=== PATIENT | female | born 1960 | race Caucasian/White ===

== ENCOUNTER → 2016-11-18 | Outpatient (CLI) | payer OTHER ==
[~2016-11-18] MED LIST: DOXY100T PO
[2016-11-18 15:24] LABS: CHOLESTEROL/HDL RATIO 2.2; THYROID STIMULATING HORMONE 1.51 uIu/ml (0.300-4.500)
== END | disposition home or self-care (01) ==
LOC: C.LAB 13:02
PROVIDERS: ATTEND Nurse Practitioner Family
DX: L60.3 Nail dystrophy (principal); F32.9 Major depressive disorder, single episode, unspecified; R53.81 Other malaise; D51.8 Other vitamin B12 deficiency anemias; Z13.220 Encounter for screening for lipoid disorders; Z13.1 Encounter for screening for diabetes mellitus

== ENCOUNTER → 2017-03-12 | Outpatient (CLI) | payer OTHER ==
[~2017-03-12] MED LIST changes: +MULT-1092 PO
== END | disposition home or self-care (01) ==
LOC: C.LAB 12:30
PROVIDERS: ATTEND Dermatology
DX: R23.9 Unspecified skin changes (principal); L65.9 Nonscarring hair loss, unspecified

== ENCOUNTER → 2017-05-20 | Outpatient (CLI) | payer OTHER ==
[~2017-05-20] MED LIST changes: -MULT-1092 PO
== END | disposition home or self-care (01) ==
LOC: C.LAB 17:15
PROVIDERS: ATTEND Dermatology
DX: I73.00 Raynaud's syndrome without gangrene (principal); L65.9 Nonscarring hair loss, unspecified

== ENCOUNTER → 2017-05-31 | Outpatient (CLI) | payer OTHER ==
--- NOTE | 2017-05-31 18:13 | DIAGNOSTIC IMAGING REPORT ---
CHEST 2 VIEWS ROUTINE CLINICAL HISTORY: BREAST LUMP, STERNAL PAIN pain COMPARISON STUDY: No previous studies for comparison. FINDINGS: The bones soft tissues and hemidiaphragms are normal. The cardiomediastinal silhouette is normal. The lungs are clear. The pulmonary vasculature is normal. IMPRESSION: Negative chest. The above report was generated using voice recognition software. It may contain grammatical, syntax or spelling errors. Electronically signed by: Jose Zhou M.D. 05/31/2017 6:12 PM Dictated Date/Time: 05/31/2017 6:11 PM
== END | disposition home or self-care (01) ==
LOC: C.RAD 17:41
PROVIDERS: ATTEND Nurse Practitioner Family
DX: R07.89 Other chest pain (principal); N63 Unspecified lump in breast

== ENCOUNTER → 2017-06-10 | Outpatient (CLI) | payer OTHER ==
--- NOTE | 2017-06-10 13:31 | MAMMOGRAPHY REPORT ---
BILATERAL DIGITAL DIAGNOSTIC MAMMOGRAM TOMOSYNTHESIS WITH CAD AND TARGETED RIGHT ULTRASOUND: 7 CLINICAL HISTORY: 56-year-old woman presents with a painful red draining mass in the lower inner quad rant of the right breast that she has noticed for 1 to 2 weeks. She was recently placed on doxycycli ne by her primary care physician. TECHNIQUE: Bilateral CC and MLO views of the breasts with and without implant displacement views wer e obtained. Tomosynthesis was also performed on the implant displaced views. Current study was also evaluated with a Computer Aided Detection (CAD) system. COMPARISON: No prior exams were available for comparison. BREAST COMPOSITION: There are scattered areas of fibroglandular density in both breasts. FINDINGS: Bilateral subglandular silicone implants are in place. A triangle palpable marker overlie s the lower inner far posterior right breast, denoting the area of concern pointed out by the patient . There are a few benign appearing rim calcifications scattered in the breasts. No suspicious mass, architectural distortion or cluster of suspicious microcalcification. Targeted ultrasound was performed in the area of concern, in the 3:00 far medial right breast, 7 cm f rom the nipple. On visual inspection, there is a 3.5 x 4 cm erythematous mass, with evidence of skin blistering near the edges of the mass. On ultrasound, there is diffuse skin thickening over the daniella thematous mass and a small central focal fluid collection measuring 5.1 x 7.2 mm. This is most pati tible with an abscess, and could be secondary to an infected epidermal inclusion cyst. Surgical cons ultation is recommended. IMPRESSION: ACR BI-RADS CATEGORY 2: BENIGN, TARGETED ULTRASOUND ACR BI-RADS CATEGORY 2: BENIGN 1. The painful palpable right lump in the medial right breast is compatible with a small abscess dustin suring 5 x 7 mm, but there is diffuse surrounding skin thickening and erythema measuring 3.5 x 4 cm. Surgical consultation for evaluation and possible incision and drainage is recommended. The patient should continue her antibiotics until at least meeting with the surgeon. An appointment was sherry candelaria with Dr. Martinez of general surgery today, but this was not convenient for the patient and she nick l instead follow-up in his office on Friday, June 16. 2. Otherwise no mammographic evidence of malignancy in the breasts. Recommend bilateral mammography in one year. Approximately 10% of breast cancers are not detected with mammography. A negative mammographic report should not delay biopsy if a clinically suggestive mass is present. Emerald Harris M.D. ay/:06/10/2017 12:06:44 Allergist/Immunologist Physician: Esperanza HERR(R)(M), [facility] letter sent: Normal 1/2 BI-RADS Code: ACR BI-RADS Category 2: Benign Ultrasound BI-RADS: ACR BI-RADS Category 2: Benign
== END | disposition home or self-care (01) ==
LOC: C.MAMM 09:12
PROVIDERS: ATTEND Nurse Practitioner Family
DX: N63 Unspecified lump in breast (principal)

== ENCOUNTER → 2017-08-19 | Outpatient (CLI) | payer OTHER | END | disposition home or self-care (01) | LOC: C.PATHSPEC 10:48 | PROVIDERS: ATTEND Surgery | DX: L90.5 Scar conditions and fibrosis of skin (principal); N60.01 Solitary cyst of right breast ==

== ENCOUNTER → 2017-10-04 | Outpatient (CLI) | payer OTHER ==
[2017-10-04 08:09] LABS: HEMATOCRIT 37.9 % (37-47); MEAN CELL VOLUME 93.6 fL (80-100); MEAN CORPUSCULAR HEMOGLOBIN 31.9 pg (25-34); MEAN PLATELET VOLUME 9.9 fL (7.4-10.4); PLATELET COUNT 280 K/uL (130-400); RED BLOOD COUNT 4.05 M/uL (4.2-5.4); WHITE BLOOD COUNT 8.22 K/uL (4.8-10.8)
[2017-10-04 08:38] LABS: BLOOD UREA NITROGEN 16 mg/dl (7-18); BUN/CREATININE RATIO 21.9 (10-20); CARBON DIOXIDE 26 mmol/L (21-32); CHLORIDE 107 mmol/L (98-107); CHOLESTEROL 105 mg/dl (0-200); CREATININE 0.74 mg/dl (0.60-1.20); GLUCOSE 88 mg/dl (70-99); MAGNESIUM 2.1 mg/dl (1.8-2.4); POTASSIUM 3.8 mmol/L (3.5-5.1); SODIUM 140 mmol/L (136-145); TRIGLYCERIDES 42 mg/dl (0-150); VERY LOW DENSITY LIPOPROT CALC 8 mg/dl
[2017-10-04 08:49] LABS: CHOLESTEROL/HDL RATIO 1.7; HDL CHOLESTEROL 63 mg/dl; LDL CHOLESTEROL CALCULATED 34 mg/dl; TOTAL IRON BINDING CAPACITY 310 mcg/dl (250-450)
== END | disposition home or self-care (01) ==
LOC: C.LAB 07:03
PROVIDERS: ATTEND Nurse Practitioner Family
DX: Z13.1 Encounter for screening for diabetes mellitus (principal)

== ENCOUNTER → 2017-10-22 | Outpatient (CLI) | payer OTHER ==
[~2017-10-22] MED LIST changes: +CEPH500C PO; +MULT-1092 PO
== END | disposition home or self-care (01) ==
LOC: C.LABSPEC 17:16
PROVIDERS: ATTEND Obstetrics & Gynecology
DX: N76.0 Acute vaginitis (principal)

== ENCOUNTER → 2017-10-22 | Outpatient (CLI) | payer OTHER | END | disposition home or self-care (01) | LOC: C.PAPS 16:05 | PROVIDERS: ATTEND Obstetrics & Gynecology | DX: Z12.4 Encounter for screening for malignant neoplasm of cervix (principal) ==

== ENCOUNTER 2017-10-23 14:34 | Emergency (ER) | payer OTHER ==
[~2017-10-23] VITALS: Ht 175.3 cm; Wt 70.9 kg
[~2017-10-23 14:34] MED LIST changes: -CEPH500C PO; -MULT-1092 PO
[2017-10-23 14:38] VITALS: TEMP 36.6; Ht 175.3 cm; Wt 70.9 kg
[2017-10-23] MEDS ORDERED: LIDOCAINE/EPINEPHRINE 1% 20 ML VIAL INFIL STA (15:03)
[2017-10-23] MEDS ORDERED: MULT-1092 PO (15:06)
--- NOTE | 2017-10-23 15:58 | DIAGNOSTIC IMAGING REPORT ---
R FOOT MIN 3 VIEWS ROUTINE HISTORY: 57 years-old Female R heel Foreign body.trauma acute right heel pain with concern for possible foreign body COMPARISON: None available TECHNIQUE: 3 views of the right foot FINDINGS: There is a 1.5 x 0.1 cm mildly radiopaque structure present within the plantar soft tissues adjacent to the posterior calcaneus laterally. Mild associated soft tissue swelling. There is no acute fracture or dislocation. Probable bone island of the distal metaphyseal fifth metatarsal. Degenerative changes involve the hallux sesamoids with the adjacent first metatarsal head. Accessory navicular. IMPRESSION: 1. No acute fracture or dislocation. 2. 1.5 x 0.1 cm linear foreign body involves the plantar soft tissues adjacent to the posterior calcaneus. The above report was generated using voice recognition software. It may contain grammatical, syntax or spelling errors. Electronically signed by: Erwin Bassett M.D. 10/23/2017 3:56 PM Dictated Date/Time: 10/23/2017 3:54 PM
[2017-10-23] MEDS ORDERED: CEPHALEXIN MONOHYDRATE 250 MG CAP PO STA (17:11)
[2017-10-23] MEDS ORDERED: CEPH500C PO (17:16)
--- NOTE | 2017-10-23 17:16 | EMERGENCY ROOM VISIT NOTE ---
ED Visit Note First contact with patient: 14:46 Chief Complaint: "Laceration bottom right foot". History of Present Illness: This patient is a 57 who presents to the Emergency Department female for evaluation of their R heel laceration. Patient sustained the laceration while walking last night in her house around 10 pm. They report a moderate amount of bleeding initially. They deny any numbness or tingling into the distal extremity. Patient rates her current discomfort as a 0/10. Patient's Tetanus status is currently up-to-date. Medications: As noted below Allergies: Bactrim PMH: No pertinent SHx: Patient lives locally ROS: All pertinent positive and negative review of systems are appropriately documented in the History of Present Illness. Physical Exam: VITAL SIGNS - Vital signs and nursing notes were reviewed. Stable. GENERAL -57-year-old female appearing her stated age who is in no acute distress. Communicates well with provider and answers questions appropriately. SKIN - There is a 2 cm long laceration noted on the bottom of the right heel anterior posterior superficial with a deep Center. The edges gape apart with traction. No foreign bodies appreciated but are suspected. Upon further examination there are no deep structures including vessel, tendon, or bony structures appreciated. There is no active bleeding noted. MUSCULOSKELETAL - FROM NEUROLOGIC - Spinothalamic tract was found to be intact with ability to discriminate sharp versus dull sensation. VASCULAR - Capillary refill was brisk. ED Course: Patient was seen and evaluated by myself. Risks and benefits of performing primary wound closure versus no repair were discussed with the patient who verbalizes understanding. Verbal consent was obtained prior to performing the procedure. 3 cc of 1% buffered lidocaine with epinephrine was used to anesthetize the right heel laceration. X-ray was obtained with results as above. There is a suspected foreign body on the x-ray. The wound was cleansed and prepped in the typical sterile fashion utilizing normal saline and Betadine. The wound was sterilely draped. Once proper anesthetization was established, the wound was further examined and demonstrated potential foreign body however I do not feel comfortable from the emergency department setting removing this without orthopedic evaluation. Case was discussed with the attending physician and I spoke with Dr. Egan of orthopedics. Then Dr. Joe and Jake Rosas PA-C came to hydrate the patient. Please refer to their documentation regarding the procedure. It was removed successfully. Patient is to follow with them on Friday. Keflex was prescribed help prevent infection. Patient appears stable for outpatient management. She was given a postop shoe and crutches. She was educated upon management, educated upon worrisome symptoms in which to return, had persistent by discharge, and was discharged home in good condition. The patient indicates that her tetanus was updated today at the family doctor's office who referred her here for evaluation of the suspected foreign body. Problem List Medical Problems: (1) Asthma Status: Chronic (2) IBS (irritable bowel syndrome) Status: Chronic (3) Left facial swelling Status: Resolved (4) Left facial swelling Status: Resolved Current/Historical Medications Scheduled Cephalexin Monohydrate (Keflex), 500 MG PO QID Multiple Vitamins W/ Minerals (Centrum Silver 50+Women), 1 TAB PO DAILY Allergies Coded Allergies: Sulfa Drugs (Verified Allergy, Unknown, ., 05/27/14) Sulfamethoxazole w/Trimethoprim (Verified Allergy, Unknown, ., 05/27/14) Vital Signs Date Time Temp Pulse Resp B/P (MAP) Pulse Ox O2 Delivery O2 Flow Rate FiO2 10/23/17 17:26 70 124/71 99 Room Air 10/23/17 14:38 36.6 67 18 157/84 100 Room Air Medications Administered Medications (Trade) Dose Ordered Sig/Kiran Route Start Time Stop Time Status Last Admin Dose Admin Cephalexin Monohydrate (Keflex Cap) 500 mg NOW STAT PO 10/23/17 17:11 10/23/17 17:12 DC 10/23/17 17:23 500 MG Departure Information Impression Primary Impression: Foreign body in foot, right Dispostion Home / Self-Care Condition GOOD Prescriptions Cephalexin Monohydrate (Keflex) 500 Mg Cap 500 MG PO QID for 7 Days, #28 CAP Prov: Luis Chapa PA-C 10/23/17 Referrals No Doctor, Assigned (PCP) Dennis Egan M.D. Patient Instructions My [facility] Additional Instructions You have been treated in the Emergency Department for a R heel foreign body. Keflex for infection prevention every 6 hours. For pain control, you can use the following cowd-rtt-wegezyj medicines (if >12 yo): - Regular strength (325mg/tab) Tylenol (acetaminophen) 2 tabs every 4-6 hours as needed. Do not exceed 12 tablets in a 24 hour period. Avoid taking more than 3 grams (3000 mg) of Tylenol per day. This includes any other sources of acetaminophen you may take on a regular basis. - Regular strength (200 mg/tab) Advil (ibuprofen) 1-2 tabs every 4-6 hours as needed. Do not exceed a dose of 3200 mg per day. If this is a recent injury (<24 hrs), ice can be applied to the area of pain for the first 3 days to help decrease pain and inflammation. You have been provided the number for an Orthopaedic Surgeon. You should expect a fall from them tomorrow regarding followup. Keep the foot splint on until seen Friday. Use the crutches you have been provided to keep ALL weight off of the foot until cleared. Return to the Emergency Department if your current symptoms worsen despite treatment course outlined above, or if you develop any of the following symptoms : intractable pain despite aforementioned treatment course or new onset of numbness or tingling of the foot.
[2017-10-23 17:26] VITALS: BP 124/71; PULSE 70; O2SAT 99
--- NOTE | 2017-10-23 17:37 | DIAGNOSTIC IMAGING REPORT ---
RIGHT FOOT 3 VIEWS CLINICAL HISTORY: Foreign body. FINDINGS: 3 views of the right foot are compared to study performed earlier the same day 10/23/2017. The skeletal structures are well mineralized. No fracture is seen. The joint spaces of the foot are well-maintained. A bone island is incidentally noted in the fifth metatarsal. The foreign body present within the soft tissues of the heel seen on the earlier examination is no longer identified. The overlying soft tissues are within normal limits. IMPRESSION: 1. No acute bony abnormality is seen in the right foot. 2. The foreign body in the heel seen on the earlier study has been removed. Electronically signed by: Dmitriy Coello M.D. 10/23/2017 5:36 PM Dictated Date/Time: 10/23/2017 5:24 PM
--- NOTE | 2017-10-23 17:45 | ORTHOPEDIC CONSULTATION REPORT ---
DATE OF CONSULTATION: 10/23/2017 CHIEF COMPLAINT: Right foot pain. HISTORY OF PRESENT ILLNESS: This is a 57-year-old white female who was seen in the ED today. The patient states she sustained a laceration on her right foot last evening. She was walking barefoot across the carpet. She had a sudden onset of pain and a sharp burning sensation in her foot. She noticed some bleeding on the bottom of her foot. It continued to be painful with any attempted weightbearing. She did see her PCP today and they updated her tetanus. She was then sent to the ED for evaluation of possible foreign body. No numbness or tingling. No other complaints. She has already received local anesthetic provided by the ED staff. She does recall breaking a mirror a few days ago, but thought she picked up all of the pieces. PAST MEDICAL HISTORY: Significant for skin sensitivity, asthma, bronchitis, history of pneumonia, and history of GERD. PREVIOUS SURGERIES: Foot surgery x3. FAMILY HISTORY: Significant for diabetes and kidney disease. Parents are living. SOCIAL HISTORY: The patient is employed. No tobacco use. No ETOH use. ALLERGIES: KNOWN ALLERGY TO BACTRIM, WHICH CAUSED A RASH 30 YEARS AGO. REVIEW OF SYSTEMS: Significant for above stated conditions. Otherwise unremarkable. PHYSICAL EXAMINATION: GENERAL: Well-developed and well-nourished middle aged white female in no acute distress. Lying on a bed. Alert and oriented. SKIN: Warm and dry with good turgor. On the plantar surface of her right heel, she has an approximately 2.5-cm laceration present. It is slightly irregular. Bleeding is controlled. She has a deeper portion of the wound that is more toward the heel. It is very superficial toward the toes. DATA: Radiographic imaging previously obtained in the ED showed a 15-mm foreign body present in the heel. Post-removal films showed no foreign body present. PROCEDURE: Her heel has already been prepped and draped by the ED staff. I did augment her anesthesia with another 10ml of 1% lidocaine. The patient was seen in conjunction with Dr. Garrett. He was able to probe the area and did palpate a firm object within the area and was able to remove it using hemostats. It appeared to be a shard of glass measuring about 15mm. This matches the length of the image seen on her films. The wound was irrigated copiously using normal sterile saline under jet spray lavage. The wound was then closed using 4-0 nylon in 2 simple interrupted sutures. This was closed loosely to allow for potential drainage. Skin was then cleansed and a bacitracin dressing was applied. PLAN: The patient will follow up in the office on Friday for a wound check. She was given crutches and a postop shoe for weightbearing. She will bear more weight on her forefoot as comfort dictates. Tylenol and Motrin every 6 hours as needed for discomfort. She was started on Keflex 500 mg q.i.d. x7 days. First dose was given in the ED. She may cleanse the area gently with soap and water. Avoid soaking. The patient was seen in conjunction with Dr. Egan, who also evaluated the patient and concurred with today's treatment and plan. ELGIN
--- NOTE | 2017-10-23 21:01 | ORTHOPEDIC CONSULTATION ---
DATE OF CONSULTATION: 10/23/2017 The patient was seen in conjunction with Dr. Jann Garrett and Jake Rosas. For further details refer to Jake's dictation. She had a foreign body in her left foot. This was removed. Radiographs confirmed such. The wound was irrigated. She had several stitches to loosely approximate the skin and antibiotics. This appeared to be a piece of glass that she picked up yesterday. She will follow up in our office in 4 days for wound check. She will be on antibiotics. She can weightbear as tolerated with postop shoe and crutches, ice, elevation and pain medication. The patient seen and examined. For further details, refer to Jake Rosas dictation. He and I saw and evaluated together and are in agreement with the plan.
== END 2017-10-23 17:40 | disposition home or self-care (01) ==
LOC: C.EDB 14:35 → C.EDD 17:40
DX: S91.321A Laceration with foreign body, right foot, initial encounter (principal); X58.XXXA Exposure to other specified factors, initial encounter; Y92.009 Unspecified place in unspecified non-institutional (private) residence as the place of occurrence of the external cause; J45.909 Unspecified asthma, uncomplicated; K58.9 Irritable bowel syndrome, unspecified; K21.9 Gastro-esophageal reflux disease without esophagitis; Z87.01 Personal history of pneumonia (recurrent); Z83.3 Family history of diabetes mellitus; Z84.1 Family history of disorders of kidney and ureter

== ENCOUNTER 2017-11-12 21:33 | Emergency (ER) | payer OTHER ==
[~2017-11-12] VITALS: Ht 175.3 cm; Wt 66.0 kg
[~2017-11-12 21:33] MED LIST changes: -DOXY100T PO; +MULT-1092 PO
[2017-11-12 21:44] VITALS: TEMP 36.4; Ht 175.3 cm; Wt 66.0 kg
[2017-11-12] MEDS ORDERED: AMPH20TA2 PO (22:34)
[2017-11-12 22:49] LABS: BASO % 0.2 %; BASO ABS # 0.04 K/uL (0-0.2); EOS % 0.6 %; EOS ABS # 0.11 K/uL (0-0.5); HEMATOCRIT 40.9 % (37-47); HEMOGLOBIN 13.9 g/dL (12.0-16.0); IG# 0.06 K/uL (0.00-0.02); LYMPH % 5.8 %; MEAN CELL VOLUME 94.5 fL (80-100); MEAN CORPUSCULAR HEMOGLOBIN 32.1 pg (25-34); MEAN PLATELET VOLUME 10.1 fL (7.4-10.4); MONO ABS # 0.68 K/uL (0.11-0.59); NEUT % 89.1 %; NEUT ABS # 15.28 K/uL (1.4-6.5); PLATELET COUNT 297 K/uL (130-400); RED CELL DISTRIBUTION WIDTH CV 12.8 % (11.5-14.5); RED CELL DISTRIBUTION WIDTH SD 44.4 fL (36.4-46.3); WHITE BLOOD COUNT 17.17 K/uL (4.8-10.8)
--- NOTE | 2017-11-12 22:54 | DIAGNOSTIC IMAGING REPORT ---
CT SCAN OF THE BRAIN WITHOUT IV CONTRAST CLINICAL HISTORY: Head injury. COMPARISON STUDY: MRI of the brain dated 05/27/2014. TECHNIQUE: Unenhanced axial CT scan of the brain is performed from the vertex to the skull base. A dose lowering technique was utilized adhering to the principles of ALARA. CT DOSE: 837.99 mGy.cm FINDINGS: Brain parenchyma: The brain parenchyma is normal in appearance. There is no hemorrhage, mass effect, or evidence of acute territorial ischemia by CT criteria. Slade-white matter is preserved. No extra-axial fluid collection is seen. Ventricles, sulci, cisterns: Normal in configuration. Intracranial vasculature: The visualized intracranial vasculature at the skull base is normal in appearance. Calvarium: The skeletal structures are well mineralized. No depressed calvarial fracture is seen. Sinuses and mastoids: Mild mucosal thickening is seen within the maxillary, sphenoid, and ethmoid sinuses. The mastoid air cells are well pneumatized. Orbits: The bony orbits are grossly intact. IMPRESSION: There is no hemorrhage, mass effect, or evidence of acute territorial ischemia by CT criteria. Electronically signed by: Dmitriy Coello M.D. 11/12/2017 10:52 PM Dictated Date/Time: 11/12/2017 10:50 PM
[2017-11-12 22:59] LABS: PTT PATIENT 24.3 SECONDS (21.0-31.0)
--- NOTE | 2017-11-12 23:06 | DIAGNOSTIC IMAGING REPORT ---
CT SCAN OF THE FACIAL BONES WITHOUT IV CONTRAST CLINICAL HISTORY: Left facial injury. COMPARISON STUDY: CT of the brain performed concurrently on 11/12/2017. TECHNIQUE: High-resolution CT scan of the facial bones is performed. Images are reviewed in the axial, sagittal, and coronal planes. IV contrast was not administered for this examination. A dose lowering technique was utilized adhering to the principles of ALARA. CT DOSE: Reported separately under the concurrently performed CT scan of the brain. FINDINGS: The skeletal structures are well mineralized. There is no evidence of facial bone fracture. The bony orbits are intact and the orbital contents are within normal limits. The zygomatic arches, nasal bones, and pterygoid plates are preserved. The maxilla and mandible are intact. There are no layering blood products within the paranasal sinuses. There is mild/moderate mucosal thickening within the maxillary and ethmoid sinuses. Mild mucosal thickening is also seen in the sphenoid sinuses. The mastoid air cells are well pneumatized. The visualized calvarium and upper cervical spine are maintained. Partially imaged brain parenchyma is within normal limits. There is mild left periorbital and premalar soft tissue contusion. IMPRESSION: There is no evidence of facial bone fracture. Electronically signed by: Dmitriy Coello M.D. 11/12/2017 11:05 PM Dictated Date/Time: 11/12/2017 11:02 PM
[2017-11-12 23:07] LABS: ALBUMIN 3.7 gm/dl (3.4-5.0); ALT/SGPT 20 U/L (12-78); AST/SGOT 13 U/L (15-37); BLOOD UREA NITROGEN 13 mg/dl (7-18); CALCIUM 9.2 mg/dl (8.5-10.1); CARBON DIOXIDE 28 mmol/L (21-32); CREATININE 0.88 mg/dl (0.60-1.20); GLUCOSE 100 mg/dl (70-99); POTASSIUM 3.7 mmol/L (3.5-5.1); SODIUM 138 mmol/L (136-145)
[2017-11-12 23:11] LABS: ALKALINE PHOSPHATASE 96 U/L (45-117); TOTAL PROTEIN 7.5 gm/dl (6.4-8.2)
[2017-11-12] MEDS ORDERED: ACETAMINOPHEN 500 MG TAB PO STA (23:40)
--- NOTE | 2017-11-13 00:12 | EMERGENCY ROOM VISIT NOTE ---
History First contact with patient: 21:48 Chief Complaint: FALL Stated Complaint: FALL, AMS, FACIAL INJURIES History of Present Illness The patient is a 57 year old female who presents to the Emergency Room with complaints of a fall. The patient believes that she slipped on ice and struck the left side of her face. She states that she feels very disoriented and does not remember what happened. She states that she remembers being with her grandson and then coming here, but does not member anything in between. She thinks that she must have slipped on ice, because this is what her grandson told her. She reports pain in the left side of her head radiating 5/10. She denies any numbness, weakness, blurred vision, slurred speech, nausea or vomiting. She denies feeling confused or having a headache prior to the head injury. Review of Systems A complete 10 point review of systems was reviewed with the patient with pertinent positives and negatives as per history of present illness. All else were negative. Past Medical/Surgical History Medical Problems: (1) Asthma (2) IBS (irritable bowel syndrome) (3) Left facial swelling (4) Left facial swelling Family History Diabetes mellitus Hypertension Social History Smoking Status: Former Smoker Alcohol Use: none Marital Status: single Housing Status: lives alone Occupation Status: employed Current/Historical Medications Scheduled Amphetamine-Dextroamphetamine 20MG (Adderall 20MG), 20 MG PO QAM Multiple Vitamins W/ Minerals (Centrum Silver 50+Women), 1 TAB PO DAILY Physical Exam Vital Signs Date Time Temp Pulse Resp B/P (MAP) Pulse Ox O2 Delivery O2 Flow Rate FiO2 11/13/17 00:40 76 130/69 97 11/13/17 00:00 74 131/63 99 Room Air 11/12/17 21:44 36.4 75 162/73 100 Room Air Physical Exam VITALS: Vitals are noted on the nurse's note and reviewed by myself. Vital signs stable. GENERAL: This is a 57-year-old female, in no acute distress, nondiaphoretic, well-developed well-nourished. SKIN: There is an abrasion lateral to the left eye as well as some ecchymosis in the left periorbital region. HEAD: Normocephalic atraumatic. EARS: External auditory canals clear, tympanic membranes pearly driscoll without erythema or effusion bilaterally. No hemotympanum. EYES: Left periorbital ecchymosis. Pupils equal round and reactive to light and accommodation. Extraocular movements intact. MOUTH: Mucous membranes moist. NECK: Supple without nuchal rigidity. Cervical spine is nontender. HEART: Regular rate and rhythm without murmurs gallops or rubs. LUNGS: Clear to auscultation bilaterally without wheezes, rales or rhonchi. MUSCULOSKELETAL: Strength 5/5 throughout. NEURO: Patient was alert and oriented to person place and time. She does seem to be confused this evening's events. Medical Decision & Procedures ER Provider Diagnostic Interpretation: CT SCAN OF THE BRAIN WITHOUT IV CONTRAST IMPRESSION: There is no hemorrhage, mass effect, or evidence of acute territorial ischemia by CT criteria. CT SCAN OF THE FACIAL BONES WITHOUT IV CONTRAST IMPRESSION: There is no evidence of facial bone fracture. Laboratory Results 11/12/17 22:19 Red Blood Count 4.33, Mean Corpuscular Volume 94.5, Mean Corpuscular Hemoglobin 32.1, Mean Corpuscular Hemoglobin Concent 34.0, Mean Platelet Volume 10.1, Neutrophils (%) (Auto) 89.1, Lymphocytes (%) (Auto) 5.8, Monocytes (%) (Auto) 4.0, Eosinophils (%) (Auto) 0.6, Basophils (%) (Auto) 0.2, Neutrophils # (Auto) 15.28, Lymphocytes # (Auto) 1.00, Monocytes # (Auto) 0.68, Eosinophils # (Auto) 0.11, Basophils # (Auto) 0.04 11/12/17 22:19 Test 11/12/17 22:19 11/12/17 23:20 White Blood Count 17.17 K/uL (4.8-10.8) Red Blood Count 4.33 M/uL (4.2-5.4) Hemoglobin 13.9 g/dL (12.0-16.0) Hematocrit 40.9 % (37-47) Mean Corpuscular Volume 94.5 fL (80-100) Mean Corpuscular Hemoglobin 32.1 pg (25-34) Mean Corpuscular Hemoglobin Concent 34.0 g/dl (32-36) Platelet Count 297 K/uL (130-400) Mean Platelet Volume 10.1 fL (7.4-10.4) Neutrophils (%) (Auto) 89.1 % Lymphocytes (%) (Auto) 5.8 % Monocytes (%) (Auto) 4.0 % Eosinophils (%) (Auto) 0.6 % Basophils (%) (Auto) 0.2 % Neutrophils # (Auto) 15.28 K/uL (1.4-6.5) Lymphocytes # (Auto) 1.00 K/uL (1.2-3.4) Monocytes # (Auto) 0.68 K/uL (0.11-0.59) Eosinophils # (Auto) 0.11 K/uL (0-0.5) Basophils # (Auto) 0.04 K/uL (0-0.2) RDW Standard Deviation 44.4 fL (36.4-46.3) RDW Coefficient of Variation 12.8 % (11.5-14.5) Immature Granulocyte % (Auto) 0.3 % Immature Granulocyte # (Auto) 0.06 K/uL (0.00-0.02) Prothrombin Time 10.4 SECONDS (9.0-12.0) Prothromb Time International Ratio 1.0 (0.9-1.1) Activated Partial Thromboplast Time 24.3 SECONDS (21.0-31.0) Partial Thromboplastin Ratio 0.9 Anion Gap 6.0 mmol/L (3-11) Est Creatinine Clear Calc Drug Dose 74.4 ml/min Estimated GFR () 85.1 Estimated GFR (Non- 73.4 BUN/Creatinine Ratio 14.7 (10-20) Calcium Level 9.2 mg/dl (8.5-10.1) Total Bilirubin 0.8 mg/dl (0.2-1) Aspartate Amino Transf (AST/SGOT) 13 U/L (15-37) Alanine Aminotransferase (ALT/SGPT) 20 U/L (12-78) Alkaline Phosphatase 96 U/L (45-117) Troponin I < 0.015 ng/ml (0-0.045) Total Protein 7.5 gm/dl (6.4-8.2) Albumin 3.7 gm/dl (3.4-5.0) Globulin 3.8 gm/dl (2.5-4.0) Albumin/Globulin Ratio 1.0 (0.9-2) Ethyl Alcohol mg/dL < 3.0 mg/dl (0-3) Urine Color YELLOW Urine Appearance CLEAR (CLEAR) Urine pH 7.5 (4.5-7.5) Urine Specific [place] 1.010 (1.000-1.030) Urine Protein NEG (NEG) Urine Glucose (UA) NEG (NEG) Urine Ketones NEG (NEG) Urine Occult Blood NEG (NEG) Urine Nitrite NEG (NEG) Urine Bilirubin NEG (NEG) Urine Urobilinogen NEG (NEG) Urine Leukocyte Esterase NEG (NEG) Urine Test NEG (NEG) Urine Opiates Screen NEG (NEG) Urine Methadone, Qualitative NEG (NEG) Urine Barbiturates NEG (NEG) Urine Phencyclidine (PCP) Level NEG (NEG) Ur Amphetamine/Methamphetamine NEG (NEG) MDMA (Ecstasy) Screen NEG (NEG) Urine Benzodiazepines Screen NEG (NEG) Urine Cocaine Metabolite NEG (NEG) Urine Marijuana (THC) NEG (NEG) Medications Administered Medications (Trade) Dose Ordered Sig/Kiran Route Start Time Stop Time Status Last Admin Dose Admin Acetaminophen (Tylenol Tab) 1,000 mg NOW STAT PO 11/12/17 23:40 11/12/17 23:41 DC 11/12/17 23:51 1,000 MG Medical Decision Differential diagnosis includes subarachnoid hemorrhage, subdural hematoma, epidural hematoma, concussion, among others. The patient is a 57-year-old female who presents today complaining of disorientation after a head injury. Patient did appear fairly disoriented on initial exam. CT of the head and facial bones were unremarkable. Labs did reveal an elevated white blood cell count, likely secondary to stress as there is no obvious source of infection. Tox screen was negative. Blood alcohol level was negative. The patient was monitored for a few hours and did seem to improve significantly throughout her stay. Head injury precautions were reviewed with the patient. She will follow-up with her primary care provider as needed. She verbalized understanding of my assessment and treatment plan and was discharged home in good condition. Medication Reconcilliation Current Medication List: was personally reviewed by me Blood Pressure Screening Patient's blood pressure: Elevated blood pressure Blood pressure disposition: Elevated BP felt to be situational Impression Primary Impression: Closed head injury Departure Information Dispostion Home / Self-Care Condition GOOD Referrals Senait Arreguin (PCP) Patient Instructions ED Concussion, My [facility] Additional Instructions You have been treated in the Emergency Department for a Closed Head Injury. CT Scan of your head/brain demonstrated no acute bleeding or other abnormalities. This does not completely rule out the risk for future damage to the brain. For pain control, you can use the following [id number] medicines (if >12 yo): - Regular strength (325mg/tab) Tylenol (acetaminophen) 2 tabs every 4-6 hours as needed. Do not exceed 12 tablets in a 24 hour period. Avoid taking more than 4 grams (4000 mg) of Tylenol per day. This includes any other sources of acetaminophen you may take on a regular basis. You should relax in a quiet, dark place for the rest of the day. Avoid any possible triggers including: cigarette smoke, caffeine, nicotine, chocolate, wine, beer, loud noises or music, or bright lights. You should schedule a follow-up appointment in 2-3 days with your Primary Care Provider for further evaluation and treatment of your head injury. No strenuous physical activity until your symptoms have completely resolved. Return to the Emergency Department if your current symptoms worsen despite treatment course outlined above, or if you develop any of the following symptoms : intractable pain despite aforementioned treatment course, visual disturbances , loss of vision, unilateral weakness or facial drooping, slurring of speech, loss of coordination, or loss of consciousness. Problem Qualifiers Primary Impression: Closed head injury Encounter type: initial encounter Qualified Codes: S09.90XA - Unspecified injury of head, initial encounter
[2017-11-13 00:40] VITALS: BP 130/69; PULSE 76; O2SAT 97
== END 2017-11-13 00:41 | disposition home or self-care (01) ==
LOC: EDBD 21:33 → C.EDC 21:34
DX: S09.90XA Unspecified injury of head, initial encounter (principal); W01.0XXA Fall on same level from slipping, tripping and stumbling without subsequent striking against object, initial encounter; J45.909 Unspecified asthma, uncomplicated; K58.9 Irritable bowel syndrome, unspecified; Z87.891 Personal history of nicotine dependence; Z79.899 Other long term (current) drug therapy; Z83.3 Family history of diabetes mellitus; Z82.49 Family history of ischemic heart disease and other diseases of the circulatory system

== ENCOUNTER → 2018-02-10 | Outpatient (CLI) | payer OTHER ==
[~2018-02-10] MED LIST changes: +AMPH20TA2 PO
== END | disposition home or self-care (01) ==
LOC: C.LAB 16:45
PROVIDERS: ATTEND Dermatology
DX: E55.9 Vitamin D deficiency, unspecified (principal)

== ENCOUNTER → 2018-06-11 | Outpatient (CLI) | payer OTHER ==
[~2018-06-11] MED LIST changes: +GADAVIST IV PRN
--- NOTE | 2018-06-11 09:04 | DIAGNOSTIC IMAGING REPORT ---
MRI OF THE BRAIN WITHOUT AND WITH IV CONTRAST CLINICAL HISTORY: Chronic headaches. Post concussion syndrome. COMPARISON STUDY: MRI of the brain May 27, [address] November 12, 2017 TECHNIQUE: Utilizing a 1.5 Claudine magnet and dedicated coil, multiplanar, multiecho imaging of the brain was performed pre and postcontrast administration. IV administration of 6.5 mL of Gadavist contrast was uneventful. FINDINGS: There are no foci of restricted diffusion to suggest acute infarct. No acute intracranial hemorrhage, midline shift or mass effect is present. Ventricular system is normal. Basilar cisterns are patent. There are no extra-axial collections. Flow-voids for the major intracranial vessels are present. There is no intracranial mass or pathologic enhancement. Several small white matter T2 hyperintense foci are unchanged as MRI of May 27, 2014. The appearance of the brain is similar to previous exam. Moderate ethmoid and right maxillary sinus mucosal thickening is unchanged. Calvarial signal is maintained. Orbits are unremarkable. IMPRESSION: 1. No acute intracranial findings. 2. No change in scattered white matter T2 hyperintense foci since MRI of May 27, 2014. These suggest mild small vessel disease. 3. Chronic sinus mucosal thickening. Electronically signed by: Armaan Acharya M.D. 06/11/2018 8:09 AM Dictated Date/Time: 06/11/2018 7:57 AM
== END | disposition home or self-care (01) ==
LOC: C.MRIBC 07:01
PROVIDERS: ATTEND Family Medicine
DX: R51 Headache (principal); F07.81 Postconcussional syndrome; J32.9 Chronic sinusitis, unspecified

== ENCOUNTER → 2018-07-03 | Outpatient (CLI) | payer OTHER ==
[~2018-07-03] MED LIST changes: -GADAVIST IV PRN
== END | disposition home or self-care (01) ==
LOC: C.LAB 13:30
PROVIDERS: ATTEND Nurse Practitioner Family
DX: R53.83 Other fatigue (principal); W57.XXXA Bitten or stung by nonvenomous insect and other nonvenomous arthropods, initial encounter